=== PATIENT | male | born 1960 ===

== ENCOUNTER 2017-05-19 13:39 | Emergency (ER) | payer OTHER ==
--- NOTE | 2017-05-19 13:58 | ED PDOC ---
Lower Extremity Pain/Injury Time Seen by Provider: 05/19/17 13:43 Chief Complaint (Nursing): Lower Extremity Problem/Injury History Per: Patient Onset/Duration Of Symptoms: Hrs (1) Current Symptoms Are (Timing): Still Present Severity: Moderate Pain Scale Rating Of: 4 Additional Complaint(s): Fell down steps with injury to left foot. With pain swelling and deformity. - Ankle/Foot Description Of Injury: Fell Past Medical History Vital Signs: Last Vital Signs Temp 97.1 F L 05/19/17 13:40 Pulse 68 05/19/17 13:40 Resp 20 05/19/17 13:40 BP 134/73 05/19/17 13:40 Pulse Ox 99 05/19/17 13:40 - Medical History PMH: No Chronic Diseases - Family History Family History: States: Unknown Family Hx - Allergies Allergies/Adverse Reactions: Allergies Allergy/AdvReac Type Severity Reaction Status Date / Time No Known Allergies Allergy Verified 05/19/17 13:40 Review of Systems Musculoskeletal: Positive for: Foot Pain Physical Exam - Physical Exam Appears: Positive for: Non-toxic, No Acute Distress Head Exam: Positive for: ATRAUMATIC, NORMAL INSPECTION, NORMOCEPHALIC Skin: Positive for: Normal Color, Warm, DRY Extremity: Positive for: Other (Left foot with swelling, deformity mid foot and tendrness medially. DP and PT pulses diminished bilat. Left foot warm, able to move toes.) Neurologic/Psych: Positive for: Alert, Oriented. Negative for: Motor/Sensory Deficits - ECG O2 Sat by Pulse Oximetry: 99 Disposition - Clinical Impression Clinical Impression: Lisfranc fracture - Patient ED Disposition Is Patient to be Admitted: Transfer of Care - Disposition Disposition: Transfer of Care Disposition Time: 14:54 Condition: FAIR Forms: [employer] (Azeri) Patient Signed Over To: Yessi Michel
--- NOTE | 2017-05-19 14:28 | RAD ---
PROCEDURE: Left Ankle Radiographs. HISTORY: trauma COMPARISON: None FINDINGS: BONES: Three views of the left ankle were performed for left ankle pain. No fracture is seen. No ankle mortise widening is noted. Mild degenerative changes are appreciated. Small calcaneal spur is identified. No definite joint effusion is seen. Minimal soft tissue swelling is noted. Talar dome is normal in outline. Base of the 5th metatarsal is intact. JOINTS: No ankle mortise widening. Mild degenerative changes. SOFT TISSUES: Minor soft tissue swelling. OTHER FINDINGS: None. IMPRESSION: No appreciable fracture.
--- NOTE | 2017-05-19 14:36 | RAD ---
PROCEDURE: Left Foot Radiographs. HISTORY: trauma COMPARISON: None. FINDINGS: BONES: Three views of the left foot were performed for left foot pain. There is evidence of abnormal widening of the proximal 1st and 2nd tarsal metatarsal joint suggesting Lisfranc abnormality. There appears to be curvilinear density lateral to the 2nd proximal metatarsal. Small avulsion is suspected. There is also widening of the proximal 2nd and 3rd tarsometatarsal joint. There may also be some dorsal subluxation of the tarsometatarsal joint on the lateral view. Tarsal bones however appear grossly intact. Talar dome and subtalar joint are unremarkable. Small calcaneal spur is noted. Soft tissue swelling is seen in the midfoot region. JOINTS: Lisfranc abnormality. SOFT TISSUES: See above OTHER FINDINGS: Distal metatarsals and phalanges are grossly intact. No erosions are seen. No periosteal reaction is seen. IMPRESSION: Widening of the 1st and 2nd tarsal metatarsal joint and also the 2nd and 3rd tarsal metatarsal joint. Findings are consistent with Lisfranc dislocation. This appears to be acute given the patient's recent reported trauma. Curvilinear density between the proximal 2nd and 3rd metatarsal suggests avulsion.
--- NOTE | 2017-05-19 15:18 | ED PDOC ---
- Laboratory Results Result Diagrams: 05/19/17 15:16 05/19/17 15:16 - ECG O2 Sat by Pulse Oximetry: 99 Medical Decision Making Medical Decision Making: Time: 15:00 Plan: --Received endorsement from Dr. Kay. Patient with foot injury pending Podiatry consult for further management. 1530 Evaluated by Podiatry, who will attempt reduction and then immobilize in ER. Pt to follow up at [facility] clinic anticipating surgical management Pt needs procedural sedation for reduction/immobilization. pt risks/benefits and consent signed. Refer to Sedation section 1700 Pt awake and oriented. Steady on crutches. Family to bring patient home. Plan of care discussed. Compartment syndrome cautions given. Scribe Attestation: Documented by Guzman Palma, acting as a scribe for Yessi Michel MD. Provider Scribe Attestation: All medical record entries made by the Scribe were at my direction and personally dictated by me. I have reviewed the chart and agree that the record accurately reflects my personal performance of the history, physical exam, medical decision making, and the department course for this patient. I have also personally directed, reviewed, and agree with the discharge instructions and disposition. Disposition Counseled Patient/Family Regarding: Studies Performed, Diagnosis, Need For Followup, Rx Given - Clinical Impression Clinical Impression: Lisfranc fracture - POA Present On Arrival: Falls Or Trauma - Disposition Disposition: Routine/Home Disposition Time: 17:00 Condition: STABLE Additional Instructions: NECESITA CIRUGIA POR NDIAYE PIE LLAMA A LA [facility] ([facility]) POR LA MANANA A HACER NISHANT WALLY POR MARIE REGRESA A LA GRISEL DE EMERGENCIA INMEDIATO SI SIENTE: -ENTUMECIMIENTO O FRIALDAD DE PIE -DOLOR INTRATABLE -OTRAS MALAS S[place] SI NO PUEDE HACER NISHANT WALLY LUNES, VAYA A LA GRISEL DE EMERGENCIA DE [facility]. Prescriptions: Acetaminophen with Codeine [Tylenol with Codeine No. 3 300 mg-30 mg] 2 tab PO Q4H PRN #20 tab PRN Reason: Pain Ibuprofen [Motrin Tab] 600 mg PO Q8 PRN #30 tab PRN Reason: Pain, Moderate (4-7) Instructions: Crutch Instructions (ED), Foot Fracture in Adults (ED), Deep Sedation (ED), Splint Care (ED) Forms: [employer] (Malay) Print Language: JAPANESE ED Procedural Sedation - Pre Anesthesia Assessment Chief Complaint: Lower Extremity Problem/Injury Past Medical History: Medications Reviewed, Allergies Reviewed, Record Review Previous Surgies: Reviewed Family History/Social History: Reviewed - Physical Exam/Review of Systems Vital Signs Reviewed: Yes Cardiovascular: Regular Rate and Rhythm, Murmurs Respiratory/Chest: Clear to Auscultation, Good Air Exchange. denies: Respiratory Distress, Accessory Muscle Use Neurological: GCS=15, CN II-XII Intact, Speech Normal Abdomen: Normal Bowel Sounds. denies: Tenderness, Distention, Peritoneal Signs Mental Status: Alert and Oriented X 3 - Pre-Procedure Airway Assessment History of difficult intubation or surgical airway(i.e trach: No Inability to extend neck:: No Mouth opening less than two finger breadth:: No Diagnosis of sleep apnea:: No Less than three finger breadth to hyoid bone:: No ASA Criteria: 1 - Healthy, normal. 2 - Mild systemic disease (No functional limitations, mildline obesity, DM withot complications, Hypertention). 3 - Severe systemic disease (Some functional limitation, stable angina, morbid obesity, controlled COPD/Asthma/CHF). 4 - Sever systemic disease constant threat to life (Unstable angina, active symptoms of COPD/Asthma, CHF/ Hypertension. 5 - Moribund ASA Clarification: ASA II Mallampati (airway): Class II - Intra-Procedure (Medications) Medications Given: Discontinued Medications Hydromorphone HCl (Dilaudid) 0.5 mg IV STAT STA Stop: 05/19/17 16:35 Last Admin: 05/19/17 16:50 Dose: 0.5 mg eMAR Start Stop Document 05/19/17 16:50 [email or web address] (Rec: 05/19/17 16:50 [email or web address] [id number]) Intravenous Solution Start Date 05/19/17 Start Time 16:50 [facility] Pain Assessment Document 05/19/17 16:50 [email or web address] (Rec: 05/19/17 16:50 [facility] [id number]) Pain Reassessment Is this a pain reassessment? No Sleep Is patient sleeping during reassessment? No Presence of Pain Presence of Pain Yes Pain Scale Used Pain Scale Used Numeric Location Left, Right or Bilateral Left Pain Location Body Site Ankle Description Description Constant Intensity of Pain at present 5 Pain Behavior Moaning Irritability Aggravating Factors ADL's Changing Position Alleviating Factors Medication Ketorolac Tromethamine (Toradol) 30 mg IVP ONCE ONE Stop: 05/19/17 13:55 Last Admin: 05/19/17 13:57 Dose: 30 mg [facility] Pain Assessment Document 05/19/17 13:57 MONT (Rec: 05/19/17 13:58 [facility] [id number]) Pain Reassessment Is this a pain reassessment? No Sleep Is patient sleeping during reassessment? No Presence of Pain Presence of Pain Yes Pain Scale Used Pain Scale Used Numeric Location Left, Right or Bilateral Left Pain Location Body Site Ankle Description Description Constant Intensity of Pain at present 7 Pain Behavior Guarding Irritability Aggravating Factors ADL's Changing Position Alleviating Factors/Management Medication Techniques Alleviating Factors Medication IVP Administration Document 05/19/17 13:57 MARCELA (Rec: 05/19/17 13:58 [facility] [id number]) Charges for Administration # of IVP Administrations 1 Re-Assess: [facility] Pain Reassessment Document 05/19/17 14:27 MARCELA (Rec: 05/19/17 14:39 [facility] [id number]) Sleep Is patient sleeping during reassessment? No Pain Reassessment Pain not relieved and LIP/MD was No notified Pain Scale Used Numeric Pain Scale Level 0 Ondansetron HCl (Zofran Inj) 4 mg IVP ONCE ONE Stop: 05/19/17 16:35 Last Admin: 05/19/17 16:50 Dose: 4 mg IVP Administration Document 05/19/17 16:50 MARCELA (Rec: 05/19/17 16:50 [facility] [id number]) Charges for Administration # of IVP Administrations 1 Propofol (Diprivan) 200 mg IV ONCE ONE Stop: 05/19/17 15:37 Last Admin: 05/19/17 15:52 Dose: 200 mg Comments: given during reduction as ordered eMAR Start Stop Document 05/19/17 15:52 [email or web address] (Rec: 05/19/17 15:52 [email or web address] [id number]) Intravenous Solution Start Date 05/19/17 Start Time 15:52 Herbert Agitation Sedation Document 05/19/17 15:52 [email or web address] (Rec: 05/19/17 15:52 [email or web address] [id number]) Herbert Agitation Sedation Scale Herbert Agitation Sedation Scale Score +1 Restless Anxious bu movements not aggressive vigorous
[2017-05-19 15:20] LABS: BASO % 0.3 % (0.0-2.0); EOS # 0.1 K/uL (0.0-0.7); EOS % 0.8 % (0.0-4.0); HEMATOCRIT 43.8 % (35.0-51.0); LYMPH # 1.7 K/uL (1.0-4.3); LYMPH % 19.5 % (20.0-40.0); MEAN CORPUSCULAR HEMOGLOBIN 30.7 pg (27.0-31.0); MEAN CORPUSCULAR HGB CONC 34.5 g/dL (33.0-37.0); MEAN PLATELET VOLUME 8.5 fl (7.2-11.7); MONO # 0.6 K/uL (0.0-0.8); MONO % 7.2 % (0.0-10.0); NEUT # 6.2 K/uL (1.8-7.0); NEUT % 72.2 % (50.0-75.0); RED CELL DISTRIBUTION WIDTH 12.9 % (11.5-14.5); WHITE BLOOD COUNT 8.6 K/uL (4.8-10.8)
--- NOTE | 2017-05-19 15:22 | CT ---
PROCEDURE: CT scan of the left foot without contrast HISTORY: Lisfranc fx left foot COMPARISON: X-ray same day TECHNIQUE: CT scan of the left foot was performed utilizing multiple axial images. Coronal and sagittal images were obtained. Decreasing dose techniques or utilized including iterative reconstruction. Dose: 301mGy DLP FINDINGS: There is evidence of disruption of the Lisfranc ligaments with fractures of the proximal metatarsals and distal tarsal bones with abnormal widening between 1st and 2nd tarsal metatarsal joint and 2nd and 3rd metatarsal joint. There is also dorsal subluxation of the metatarsals in relation to the tarsal bones. No definite 1st metatarsal fracture is seen. There is however evidence of a fracture of the inferior aspect of the medial cuneiform bone in its plantar region best seen on sagittal imaging is. There is also fracture of the proximal aspect of the 2nd metatarsal extending to the articular margin, also best seen on sagittal images. There is a curvilinear area of density seen between proximal 2nd and 3rd metatarsals suggesting avulsion fracture. There may also be a fracture of the middle cuneiform bone distally. Small avulsion fracture of the distal lateral cuneiform bone is also suspected. There is a probable mildly displaced fracture of the proximal 4th metatarsal and tiny avulsion of the proximal 3rd metatarsal. Cuboid may have a very tiny fracture in its distal aspect on the axial images. Moderate soft tissue swelling is seen overlying the midfoot region. Calcaneus is intact. Talus and navicular bone are intact. Subtalar joint is unremarkable. Tarsal sinus has mild soft tissue. Distal portions of the metatarsals are intact. IMPRESSION: Lisfranc type fracture and dislocation with details given above. Multiple fractures are noted. There is additionally some dorsal subluxation of the proximal metatarsals in relation to the tarsal bones. Curvilinear avulsion noted between the 2nd and 3rd metatarsals proximally. Please see details above. MRI may prove helpful for further evaluation as clinically indicated.
--- NOTE | 2017-05-19 15:26 | CP.PCM.CON ---
History of Present Illness - History of Present Illness History of Present Illness: 56 y/o male seen in ED for left foot injury after he fell down a flight of stairs earlier this afternoon. Pt states he came straight to the ED and did not attempt any treatment. Pt admits to numbness and tingling in the foot at this time. Pt states he was unable to walk at all after the injury and his foot started to swell up a lot. Pt says he can wiggle his toes but it also causes a little bit of pain. Pt denies F/C/N/V/CP/SOB. PMH: denies PSH: denies All: NKDA Social: social EtOH; denies cigarette or illicit drug use Review of Systems - Review of Systems All systems: reviewed and no additional remarkable complaints except (per HPI) Past Patient History - Past Social History Smoking Status: Never Smoked - PSYCHIATRIC Hx Substance Use: No - SURGICAL HISTORY Hx Surgeries: No - ANESTHESIA Hx Anesthesia: No Meds Home Medications: Home Medication List Medication Instructions Recorded Confirmed Type Acetaminophen with Codeine 2 tab PO Q4H PRN #20 tab 05/19/17 Rx [Tylenol with Codeine No. 3 300 mg-30 mg] Ibuprofen [Motrin Tab] 600 mg PO Q8 PRN #30 tab 05/19/17 Rx Allergies/Adverse Reactions: Allergies Allergy/AdvReac Type Severity Reaction Status Date / Time No Known Allergies Allergy Verified 05/19/17 13:40 Physical Exam - Constitutional Appears: Well, Non-toxic, No Acute Distress - Extremities Exam Additional comments: Lower extremity focused exam: Vasc: DP/PT pulses palpable 2/4 B/L. Temperature gradient warm to cool on R, warm to warm on L. Significant non pitting pedal edema noted to dorsum of left midfoot. CFT < 3 sec x 10 digits Derm: No ecchymosis, no open lesions, no erythema, no clinical suspicion of infection Neuro: Protective sensation grossly intact Ortho: Significant tenderness elicited upon palpation of dorsal midfoot. Pt is able to wiggle toes, elicits mild pain. Pt able to perform active dorsiflexion and plantarflexion of ankle joint without difficulty or limitation in ROM. Pt unable to perform active inversion and eversion due to guarding. Piano olvera test at dorsum of metatarsal heads positive, eliciting significant pain at bases of metatarsals 2-4. - Neurological Exam Neurological exam: Alert, Oriented x3 - Psychiatric Exam Psychiatric exam: Normal Affect, Normal Mood Results - Vital Signs Recent Vital Signs: Last Vital Signs Temp 97.1 F L 05/19/17 13:40 Pulse 68 05/19/17 13:40 Resp 20 05/19/17 13:40 BP 134/73 05/19/17 13:40 Pulse Ox 99 05/19/17 15:18 - Labs Result Diagrams: 05/19/17 15:16 05/19/17 15:16 Labs: Laboratory Results - last 24 hr 05/19/17 15:16 WBC 8.6 RBC 4.92 Hgb 15.1 Hct 43.8 MCV 89.0 MCH 30.7 MCHC 34.5 RDW 12.9 Plt Count 211 MPV 8.5 Neut % (Auto) 72.2 Lymph % (Auto) 19.5 L [place] % (Auto) 7.2 Eos % (Auto) 0.8 Baso % (Auto) 0.3 Neut # 6.2 Lymph # 1.7 [place] # 0.6 Eos # 0.1 Baso # 0.0 Assessment & Plan - Assessment and Plan (Free Text) Assessment: 56 y/o male with left foot Lisfranc fracture dislocation secondary to trauma Plan: Pt seen and evaluated in ED Discussed plan in detail with attending Dr. Butler Labs and vitals reviewed- afebrile, WBC WNL X-rays of left foot reviewed, reveal homolateral Lisfranc joint complex dislocation with disruption of the Lisfranc ligament complex and widening of the proximal 1st and 2nd TMT joints, curvilinear avulsion seen b/n proximal 2nd and 3rd metatarsal CT of LLE w/o contrast performed - reveal Lisfranc ligament disruption, dorsal subluxation of metatarsal bases 2-4 at level of tarsometatarsal joints, fracture of inferior aspect of medial cuneiform, fracture of 2nd metatarsal base , possible middle cuneiform fracture, possible avulsion fracture of 3rd met base , possible mildly displaced 4th met base fracture, possible avulsion fracture of lateral cuneiform, possible cuboid fx. No acute fractures or dislocations noted to talus, navicular or calcaneus bones Explained to patient the nature of the injury and the need to attempt closed reduction to better align his bones Discussed the need for future surgery due to the presence of several fractures and the unstable nature of the current joint alignment Obtained written consent from patient, explaining all risks and benefits of the procedure and addressing all questions and concerns Conscious sedation administered by ED nursing staff with supervision from ED attending Pt tolerated anesthesia without incident Closed reduction attempted to LLE and patient placed in posterior splint with Geller compressive dressing Post-reduction x-rays taken of left foot Pt dispensed crutches and informed that he must keep the splint clean, dry and intact and not put any weight on the LLE Pt to follow up in [facility] podiatry clinic on Tuesday with Dr. Butler, where surgical treatment options will be discussed and scheduled Thank you for this consult
[2017-05-19 15:35] LABS: ALB/GLOB RATIO 1.2 (1.0-2.1); ALKALINE PHOSPHATASE 82 U/L (38-126); ALT/SGPT 36 U/L (21-72); AST/SGOT 30 U/L (17-59); BILIRUBIN,TOTAL 1.4 mg/dl (0.2-1.3); BLOOD UREA NITROGEN 16 mg/dl (9-20); CALCIUM 8.4 mg/dL (8.4-10.2); CARBON DIOXIDE 23 mmol/L (22-30); CHLORIDE 110 mmol/L (98-107); GFR AFRICAN-AMERICAN > 60; GLUCOSE,RANDOM 112 mg/dL (75-110); POTASSIUM 3.8 MMOL/L (3.6-5.0); SODIUM 145 mmol/l (132-148); TOTAL PROTEIN 7.9 G/DL (6.3-8.2)
[2017-05-19] MEDS ORDERED: Propofol 10 mg/ml Inj (20 ML) IV ONE ×2 (15:36→17:53)
[2017-05-19] MEDS ORDERED: Propofol 10 mg/ml 0 MG/0 ML VIAL ONE (15:39)
[2017-05-19] MEDS ORDERED: Propofol 10 mg/ml Inj (20 ML) ONE ×2 (15:40→16:19)
--- NOTE | 2017-05-19 16:46 | RAD ---
PROCEDURE: Left Foot Radiographs. HISTORY: closed reduction of left foot lisfranc dislocation COMPARISON: X-ray exam earlier same day FINDINGS: BONES: Five views of the left foot were performed for post reduction evaluation of previously noted Lisfranc fracture dislocation. There is mild interval improvement in previously identified Lisfranc dislocation from prior study. There is some persistent widening of the proximal 2nd and 3rd tarsal metatarsal joint and decreased widening of the proximal 1st and 2nd tarsal metatarsal joint. In addition there is some slight decrease in dorsal subluxation of the metatarsals in relation to the distal tarsal bones. There appear to be linear lucencies in the cuneiform bone suggestive of fractures as well as curvilinear avulsion seen between the proximal 2nd and 3rd metatarsal. There is still some mild persistent subluxation defect appreciated. Hindfoot region is stable. JOINTS: See above SOFT TISSUES: Soft tissue swelling. OTHER FINDINGS: None. IMPRESSION: Mild interval improvement in previously identified Lisfranc dislocation abnormality. Some persistent widening of the tarsal metatarsal joint regions remain . Please see above for details.
--- NOTE | 2017-05-19 16:53 | RAD ---
PROCEDURE: Left Foot Radiographs. HISTORY: s/p immobilization LisFranc fracture dislocation COMPARISON: Earlier today FINDINGS: BONES: Three views of the left foot were performed. Patient has been casted since prior study. This limits evaluation of bony detail. There is still some persistent widening of the proximal 1st and 2nd tarsal metatarsal joint although improved. There is improvement also in the widening of the proximal 2nd and 3rd tarsal metatarsal joint although also with some persistent widening. There is a curvilinear avulsion seen between the proximal 2nd and 3rd metatarsal. There is still some persistent mild dorsal subluxation of the metatarsals although also improved. Soft tissue swelling is noted. JOINTS: See above SOFT TISSUES: See OTHER FINDINGS: None. IMPRESSION: Above Status post casting left foot a after close reduction of Lisfranc fracture dislocation. There is mild interval improvement although persistent widening remains as described above.
[2017-05-19 18:10] VITALS: BP 144/82; PULSE 64; RESP 16; TEMP 98.6; O2SAT 96
--- NOTE | 2017-05-20 08:39 | CARD ---
APPROVED REPORT EKG Measurement Heart [id number] <Conclusion> Normal sinus rhythm Normal ECG
== END 2017-05-19 18:30 | disposition home or self-care (01) ==
LOC: H.ER 13:39
DX: S92.322A Displaced fracture of second metatarsal bone, left foot, initial encounter for closed fracture (principal); S92.332A Displaced fracture of third metatarsal bone, left foot, initial encounter for closed fracture; W10.9XXA Fall (on) (from) unspecified stairs and steps, initial encounter
CPT/HCPCS: 73610; 73630; 73700; 80053; 85025; 85610; 93005; 96374; 96375; 99285; J1170; J1885; J2405; J2704